=== PATIENT | female | born 1955 | race Two or more races ===

== ENCOUNTER 2024-05-11 10:19 | Outpatient (CLI) | payer OTHER | END 2024-05-11 10:24 | disposition home or self-care (01) | LOC: SONOGRAMA 10:19 | PROVIDERS: ATTEND Obstetrics & Gynecology Gynecologic Oncology | DX: N85.00 Endometrial hyperplasia, unspecified (principal) ==

== ENCOUNTER 2024-11-20 09:01 | Outpatient (CLI) | payer OTHER | END 2024-11-20 09:03 | disposition home or self-care (01) | LOC: NUCLEAR 09:01 | PROVIDERS: ATTEND Family Medicine Geriatric Medicine | DX: R42 Dizziness and giddiness (principal); I10 Essential (primary) hypertension; E78.49 Other hyperlipidemia ==